=== PATIENT | male | born 1950 | race Caucasian/White ===

== ENCOUNTER 2018-05-20 14:04 | Inpatient (IN) ==
[2018-05-20] MEDS ORDERED: DUONEB (A & A) INH ONE (14:41)
[2018-05-20 14:44] LABS: ALLEN TEST NO; BE 1.2 mmoll (-3.0-3.0); BLOOD TYPE ARTERIAL; HCO3-(ACT) 25.8 mmoll (20.0-26.0); METHB 1.2 % (0.0-1.5); O2(CT) 11.4 mL/dL (15.0-23.0); O2HB 91.7 % (95.0-99.0); PCO2(98.6) 32 mmHg (35-45); PO2(98.6) 62 mmHg (60-100); SAMPLE BLOOD; THB 8.8 g/dL (11.5-17.4); pH(98.6) 7.49 (7.35-7.45)
[2018-05-20 14:46] LABS: MODALITY SIMPLE MASK
[2018-05-20 14:59] LABS: BASO# 0.03 X1000 (0.0-0.2); BASO% 0.2 % (0.0-0.8); EOS# 0.01 X1000 (0.0-0.7); EOS% 0.1 % (0.0-10.0); HEMATOCRIT 28.1 % (42.0-52.0); HEMOGLOBIN 8.9 g/dL (14.0-18.0); IMM GRAN# 0.07 X1000 (0.0-0.04); IMM GRAN% 0.5 % (0.0-0.5); LYMPH% 7.7 % (20.5-51.1); MCH 27.2 PG (27-31); MCHC 31.7 g/dL (33-37); MCV 85.9 FL (81-99); MONO# 1.08 X1000 (0.11-0.59); MONO% 7.5 % (1.7-9.3); NEUT# 12.06 X1000 (1.4-6.5); PLT 734 X1000 (130-400); RBC 3.27 XMIL (4.7-6.1); RDW 15.7 % (11.5-14.5); WBC 14.35 X1000 (4.8-10.8)
[2018-05-20 15:09] LABS: INR 1.1; PROTIME 15.1 Seconds (11.0-16.0)
[2018-05-20 15:10] LABS: PTT 35.4 Seconds (22.3-41.8)
--- NOTE | 2018-05-20 15:11 | Diag Imaging Result Doc PS360 ---
CHEST-1 VIEW - 05/20/2018 INDICATION: SOB COMPARISON: Abdomen CT from 03/15/2018 FINDINGS: There are extensive bilateral basilar infiltrates. Heart size is top normal. No pneumothorax or large pleural effusion. IMPRESSION: Extensive bilateral infiltrates. Probably represents pneumonia or pulmonary edema superimposed on pre-existing pulmonary fibrosis. Electronically signed by Lincoln Amaya 05/20/2018 3:09 PM
[2018-05-20 15:22] LABS: ALB/GLOB RATIO 0.9; ALBUMIN 3.5 g/dL (3.5-5.0); CALCIUM 9.1 mg/dL (8.8-10.2); CREATININE 1.3 mg/dL (0.7-1.2); POTASSIUM 4.7 mmol/L (3.5-5.1); TOTAL BILIRUBIN 0.42 mg/dL (0.20-1.00); TOTAL PROTEIN 7.5 g/dL (6.3-8.3)
[2018-05-20 15:32] LABS: ANISOCYTOSIS 1+; LARGE PLATELETS OCCASIONAL; LYMPHS 8 % (21-51); MONO 8 % (1-9); SEGS 83 % (42-75)
[2018-05-20 15:54] LABS: CK INDEX 1.3 (0.0-2.5); CK-MB 2.88 ng/mL (0.0-5.0)
[2018-05-20] MEDS ORDERED: ZOSYN 3.375 GM in NS 50 ML IV ONE (15:59)
[2018-05-20] MEDS ORDERED: NS 500 ML IV ONE (16:00)
--- NOTE | 2018-05-20 16:08 | PROVIDER DOCUMENTATION ---
This chart was entered by Zamzam Jeffers Scribe, acting as scribe for Josafat Langley DO. HPI-Respiratory General - General Chief Complaint: Shortness of Breath Stated Complaint: SOB Time Seen by Provider: 05/20/18 14:15 Source: patient Allergies/Adverse Reactions: Patient Allergies Allergy/AdvReac Type Severity Reaction Status Date / Time No Known Allergies Allergy Verified 05/20/18 14:39 Home Medications: Home Medication List Medication Instructions Recorded Confirmed Last Taken Type Amlodipine Besylate [Norvasc] 1 tab PO DAILY 03/12/15 05/20/18 05/20/18 History Cyclobenzaprine [Flexeril] 1 tab PO TID PRN 03/12/15 05/20/18 05/20/18 History Tiotropium Ear[place] Inhaler 1 puff INH DAILY 03/12/15 05/20/18 05/20/18 History [Spiriva] Cetirizine HCl 1 tab PO DAILY 05/20/18 05/20/18 Unknown History Hydrochlorothiazide 1 tab PO QAM 05/20/18 05/20/18 Unknown History Lisinopril 1 tab PO DAILY 05/20/18 05/20/18 Unknown History Omeprazole 1 cap PO DAILY 05/20/18 05/20/18 Unknown History RX: Escitalopram [Lexapro] 1 tab PO DAILY 05/20/18 05/20/18 Unknown History RX: Montelukast [Singulair] 1 tab PO QHS 05/20/18 05/20/18 Unknown History Simvastatin 1 tab PO QHS 05/20/18 05/20/18 Unknown History - History of Present Illness-Resp Nature of Presenting Problem: 67yom with hx COPD c/o sob for 4 days. He reports he currently quit smoking, and has not smoked for the past 10 days. Upon arrival to the ED, the patient had SAT in the low 80's. He denies pain. He denies fever, chills, nausea, vomiting, diarrhea, cp. Quality of Pain: reports: none Severity in ED: reports: moderate Onset/Duration: reports: 4 days ago Timing: reports: still present, intermittent, constant Cough Quality/Degree: reports: no cough Episode Frequency: other (hx of COPD) Current Respiratory Medication Therapy: Initiated see nurses note Modifying Factors: improves with: nothing Associated Symptoms: reports: shortness of breath. denies: chest pain/soreness , fever/chills Similar Symptoms Previously?: No Recently seen or treated by another doctor?: No Review of Systems - Adult - REVIEW OF SYSTEMS - ADULT Constitutional: denies: chills, fever Eyes: denies: discharge, dry eyes Ears, Nose, Mouth & Throat: denies: ear discharge, ear pain Cardiovascular: denies: chest pain, palpitations Respiratory: reports: shortness of breath. denies: cough Gastrointestinal: denies: abdominal pain, diarrhea, nausea, vomiting Genitourinary: denies: dysuria, hematuria Musculoskeletal: denies: back pain, muscle aches, muscle weakness Integumentary: reports: no symptoms reported Neurological: denies: dizziness/vertigo, headache/migraines Psychiatric: reports: no symptoms reported Endocrine: reports: no symptoms reported Hematologic/Lymphatic: reports: no symptoms reported Allergic/Immunologic: reports: no symptoms reported All Other Systems: Reviewed and Negative Past History - Adult - PAST MEDICAL HISTORY-ADULT Review of Records: reports: Old Records Reviewed, Nursing Assessment Review, Medications Reviewed Major Childhood Illnesses: reports: denies history Cardiovascular: reports: HTN, hyperlipidemia Respiratory: reports: COPD Gastrointestinal: reports: denies history Genitourinary: reports: denies history Musculoskeletal: reports: denies history Neurological: reports: denies history Psychiatric: reports: denies history Endocrine/Immune: reports: denies history Other Conditions: reports: denies history - PRIOR SURGERIES/PROCEDURES Surgical/Procedure History: reports: none - IMMUNIZATION STATUS Childhood Immunizations: See Nurse Assessment Flu Vaccine: See Nurse Assessment - FAMILY HISTORY Family History: reviewed, not pertinent - SOCIAL HISTORY Smoking: other (former) Substance Use: denies Living Situation: family Physical Exam-General - PHYSICAL EXAM-ADULT Exam Limited by: obesity Initial Vital Signs Reviewed: Yes - CONSTITUTIONAL General Appearance: alert, no apparent distress, obese - EYES Eyes: PERRL/EOMI, pink conjunctivae - HEAD, EARS, NOSE, MOUTH & THROAT HENMT: TMs normal, pharynx normal. negative: moist mucous membranes (dry) - NECK Neck: non-tender, supple - RESPIRATORY Respiratory: decreased breath sounds (diminshed), wheezing (expiratory), other ( tachypnea) - CARDIOVASCULAR Cardiovascular: no murmur, tachycardia - GASTROINTESTINAL (ABDOMEN) Abdominal Exam: normal bowel sounds, soft, tenderness (RLQ), other (round). negative: rigid, rebound - MUSCULOSKELETAL Extremity: non-tender, no pedal edema - SKIN Integumentary: normal color, warm/dry. negative: cyanosis - NEUROLOGIC Neurologic: grossly normal, no motor/sensory deficits - PSYCHIATRIC Psych/Mental Status: normal mood/affect, normal thought content, normal thought process, oriented x 3 Progress - PLAN OF CARE/RESULTS Progress/Plan/Lab Results: Vital Signs - 8 hr 05/20/18 14:07 05/20/18 14:25 Temperature 99.5 F Pulse Rate 120 H 120 H Respiratory Rate 28 H 24 Blood Pressure 130/61 O2 Sat by Pulse Oximetry 69 L 95 Laboratory Results - last 24 hr 05/20/18 05/20/18 05/20/18 14:21 14:21 14:21 WBC 14.35 H RBC 3.27 L Hgb 8.9 L Hct 28.1 L MCV 85.9 MCH 27.2 MCHC 31.7 L RDW Std Deviation 15.7 H Plt Count 734 H MPV 9.0 Immature Gran % (Auto) 0.5 Neut % (Auto) 84.0 H Lymph % (Auto) 7.7 L [place] % (Auto) 7.5 Eos % (Auto) 0.1 Baso % (Auto) 0.2 Immature Gran # (Auto) 0.07 H Neut # (Auto) 12.06 H Lymph # (Auto) 1.10 L [place] # (Auto) 1.08 H Eos # (Auto) 0.01 Baso # (Auto) 0.03 Segmented Neutrophils 83 H Lymphocytes 8 L Monocytes 8 Myelocytes 1.0 Large Platelets OCCASIONAL Anisocytosis 1+ PT 15.1 INR 1.10 PTT (Actin FS) 35.4 Specimen Type Sample Site pH pCO2 pO2 HCO3 Base Excess Oxyhemoglobin ABG O2 Sat (Calculated) ABG O2 Saturation ABG Carboxyhemoglobin ABG Methemoglobin Ron Test A-a O2 Difference Total Hemoglobin Lactate Liter Flow Blood Gas Modality FiO2 % Sodium 134 L Potassium 4.7 Chloride 93 L Carbon Dioxide 22 L Anion Gap 19 BUN 27 H Creatinine 1.3 H Estimated GFR/1.73 m2 55 BUN/Creatinine Ratio 21 Glucose 177 H Calculated Osmolality 278 Calcium 9.1 Total Bilirubin 0.42 AST 34 ALT 13 Alkaline Phosphatase 112 Creatine Kinase 219 H Creatine Kinase Index 1.3 CK-MB (CK-2) 2.88 Troponin T Total Protein 7.5 Albumin 3.5 Globulin 4.0 Albumin/Globulin Ratio 0.9 Plasma Lactate 05/20/18 05/20/18 05/20/18 14:21 14:25 14:41 WBC RBC Hgb Hct MCV MCH MCHC RDW Std Deviation Plt Count MPV Immature Gran % (Auto) Neut % (Auto) Lymph % (Auto) [place] % (Auto) Eos % (Auto) Baso % (Auto) Immature Gran # (Auto) Neut # (Auto) Lymph # (Auto) [place] # (Auto) Eos # (Auto) Baso # (Auto) Segmented Neutrophils Lymphocytes Monocytes Myelocytes Large Platelets Anisocytosis PT INR PTT (Actin FS) Specimen Type ARTERIAL Sample Site R BRACHIAL pH 7.49 H pCO2 32 L pO2 62 HCO3 25.8 Base Excess 1.2 Oxyhemoglobin 91.7 L ABG O2 Sat (Calculated) 11.4 L ABG O2 Saturation 95.0 ABG Carboxyhemoglobin 2.30 ABG Methemoglobin 1.2 Ron Test NO A-a O2 Difference 219.0 Total Hemoglobin 8.8 L Lactate 1.60 Liter Flow 7.0 Blood Gas Modality SIMPLE MASK FiO2 % 45.0 Sodium Potassium Chloride Carbon Dioxide Anion Gap BUN Creatinine Estimated GFR/1.73 m2 BUN/Creatinine Ratio Glucose Calculated Osmolality Calcium Total Bilirubin AST ALT Alkaline Phosphatase Creatine Kinase Creatine Kinase Index CK-MB (CK-2) Troponin T < 0.010 Total Protein Albumin Globulin Albumin/Globulin Ratio Plasma Lactate 2.9 H Orders Category Date Time Status Cardiac Monitoring DIRECTED Care 05/20/18 14:33 Active IV Insertion ORDERED Care 05/20/18 14:33 Active Notify MD of + Sepsis Screen NOW Care 05/20/18 14:33 Active Notify Physician As Ordered Care 05/20/18 14:33 Active CHEST-1 VIEW [RAD] Stat Exams 05/20/18 14:33 Completed ABG [RESP] Routine Lab 05/20/18 14:41 Completed BLOOD CULTURE [BLDCUL] Stat Lab 05/20/18 14:21 Results CBC WITH DIFF [HEME] Stat Lab 05/20/18 14:21 Completed CK PROFILE [SP CHEM] Stat Lab 05/20/18 14:21 Completed COMPREHENSIVE METABOLIC PANEL [CHEM] Stat Lab 05/20/18 14:21 Completed LACTATE, PLASMA [CHEM] Lab 05/20/18 14:25 Completed LACTATE, PLASMA [CHEM] Lab 05/20/18 17:45 Uncollected LACTATE, PLASMA [CHEM] Lab 05/20/18 20:45 Uncollected PROTIME WITH INR [COAG] Stat Lab 05/20/18 14:21 Completed PTT [COAG] Stat Lab 05/20/18 14:21 Completed TROPONIN T Stat Lab 05/20/18 14:21 Completed URINALYSIS W/POSS RFLX CULT [URINALYSIS] Stat Lab 05/20/18 14:33 Uncollected 0.9% Sodium Chloride Inj [Ns] 500 ml Med 05/20/18 16:00 Active IV 100 mls/hr Albuterol 2.5MG/Ipratrop 0.5MG [Duoneb (A & A)] Med 05/20/18 14:41 Discontinued 3 ml INH NOW ONE Piperacillin/Tazobactam [Zosyn] 3.375 gm Med 05/20/18 15:59 Active 0.9% Sodium Chloride Inj [Ns] 50 ml IV NOW Aerosol Treatments Routine Oth 05/20/18 14:41 Completed Aerosol Treatments Stat Oth 05/20/18 14:41 Completed Oxygen Device Stat Oth 05/20/18 14:33 Completed Result Diagrams: 05/20/18 14:21 05/20/18 14:21 - EKG 1 Time of EKG reading by physician:: 14:15 EKG Read and Signed by:: Josafat Langley EKG Interpretation (*Must complete 3 of following elements*): Abnormal Rate: 118 Rhythm: Sinus tachycardia [place]: normal QRS: normal Comments: possible infarct - XRAY 1 XRAY Study: Chest Impression: Abnormal (FINDINGS: There are extensive bilateral basilar infiltrates. Heart size is top normal. No pneumothorax or large pleural effusion. IMPRESSION: Extensive bilateral infiltrates. Probably represents pneumonia or pulmonary edema superimposed on pre-existing pulmonary fibrosis.) - CONSULTS/PCP/HOSPITALIST Notification #1 *Consult/PCP/Hospitalist*: Dalton Escobedo Time Discussed: 16:01 Consult Disposition: Admit Departure - Departure Date of Disposition Decision: 05/20/18 Time of Disposition Decision: 16:07 DIAGNOSIS: Pneumonia, COPD (chronic obstructive pulmonary disease) Disposition: ADMITTED INPATIENT 09 Certified Medical Emergency: Emergent Condition: Stable Additional Freetext Instructions: ED Follow Up Instructions: You have been treated by a care provider in the Emergency Department. These instructions are being provided to you so you can have an understanding of how to care for yourself upon discharge. Upon discharge from the Emergency Department, you are responsible for making arrangements for follow-up care by a physician of your choice. Take all prescribed medications as directed. Return to the Emergency Department immediately for any new or worsening symptoms. You may call the Physician Referral phone number at [phone] to obtain a list of Physicians who are taking new patients. Referrals and Follow-Ups: María Connors CRNP [Primary Care Provider] - - Critical Care Note This patient required my direct & personal management of CC.: No Attestation - Physician/ RUBINA Attestation Patient care was provided by Advanced Practice Provider:: No The physician spent face to face time with patient:: Yes Advanced Practice Provider documentation review:: Supervising physician onsite and consulted in the evaluation and care of this patient. The physician did have a face to face encounter with the patient. This chart was documented by the indicated scribe, (Zamzam Jeffers Scribe) and accurately reflects the services I performed and decisions made by , Josafat Langley DO, as attested by the provider's signature.
[2018-05-20] MEDS ORDERED: XOPENEX NEB INH PRN (16:37)
[2018-05-20 16:41] LABS: URINE SOURCE CATH
[2018-05-20] MEDS ORDERED: LEVAQUIN 750 MG/D5W 750 MG/150 ML IVPB IV SCH (16:45)
[2018-05-20 16:46] LABS: BILIRUBIN URINE NEGATIVE (NEGATIVE); BLOOD URINE NEGATIVE (NEGATIVE); COLOR YELLOW; GLUCOSE URINE NEGATIVE (NEGATIVE); KETONE URINE NEGATIVE (NEGATIVE); LEUKOCYTES URINE NEGATIVE (NEGATIVE); NITRITE URINE NEGATIVE (NEGATIVE); PH URINE 6.5; PROTEIN URINE 30 mg/dL (NEGATIVE); SP GRAVITY URINE 1.023; TURBIDITY URINE CLEAR (CLEAR); UROBILINOGEN URINE 2 mg/dL (NORMAL)
[2018-05-20 16:48] LABS: UR EPITHELIAL CELLS <10 /HPF (<10); URINE BACTERIA NEGATIVE /HPF; URINE RBC <10 /HPF (<10); URINE WBC <10 /HPF (<10)
[2018-05-20] MEDS ORDERED: SODIUM CHLORIDE 0.9% INJ SCH (17:00)
[2018-05-20 17:07] LABS: IRON SATURATION 7 %; TIBC 263 ug/dL; TOTAL IRON 18 ug/dL (53-167); UNBOUND IRON 245 ug/dL (112-346)
[2018-05-20 17:16] LABS: FREE T4 1.81 ng/dL (0.93-1.70); TSH 0.42 uIUmL (0.27-4.20)
--- NOTE | 2018-05-20 17:30 | HISTORY AND PHYSICAL ---
DATE OF ADMISSION: 05/20/2018. PRIMARY CARE PHYSICIAN: JULISSA Tapia. CHIEF COMPLAINT: Dyspnea. HISTORY OF PRESENT ILLNESS: Mr. Gar is a [id number]- male with a history of COPD, what appears to be pulmonary fibrosis, hypertension, hyperlipidemia, and depression who presents with four days of increasing dyspnea and right lower quadrant pain. He started having shortness of breath around four days ago. This has been progressively worse associated with a dry cough and no fever. He denies any chest pain. No lower extremity edema. He does endorse a focal right lower quadrant tenderness mostly when he coughs. He has been followed by his PCP for anemia. He had an abdomen CT done in March which showed pulmonary fibrosis with honeycombing at the lung bases but otherwise nothing acute. He remains anemic today but has a white count with a left shift. He is also hypoxic with mild renal insufficiency. He has a mild elevation in his lactic acid. He is breathing around 30-35 times a minute. We are going to place him on BiPAP and put him in the ICU. PAST MEDICAL HISTORY: 1. COPD. 2. Hypertension. 3. Hyperlipidemia. 4. Obesity. 5. Anemia. 6. Chronic pain. 7. [id number] history, quit smoking 10 days ago per his report. SURGICAL HISTORY: None. SOCIAL HISTORY: He was smoking upwards of three packs a day for 40 years per his report. He quit 10 days ago. Denies alcohol or drug use. He lives with his sister whom he takes care of, but he is not . He is on disability. FAMILY HISTORY: Noncontributory. REVIEW OF SYSTEMS: A 14-point review of systems was obtained and found to be negative with the exception of the HPI. PHYSICAL EXAM: VITAL SIGNS: Blood pressure is 130/74, heart rate 117, respiratory rate 30 and O2 saturation is 93% on 7 L simple face mask. Temperature is 99.5. GENERAL: This is an obese- male lying in a hospital bed in moderate to severe respiratory distress. NEUROLOGICAL: He is awake and oriented. He follows commands without focal deficits. HEENT: Normocephalic, atraumatic. Pupils are equal, round and reactive to light. His oral mucosa is dry. Trachea is midline. There is no JVD. CHEST: Increased work of breathing noted. No overt wheezes. Faint crackles noted throughout. CV: Tachy but regular. S1, S2 noted. No murmurs. GI: Focal right lower quadrant tenderness to palpation. Otherwise, abdomen is soft and nondistended. Bowel sounds are hypoactive. EXTREMITIES: Diminished pulses at 1+ bilaterally. There is no edema. DIAGNOSTIC DATA: Chest x-ray shows extensive bilateral infiltrates presumably representing pneumonia or pulmonary edema superimposed on preexisting pulmonary fibrosis. WBC 14.35, hemoglobin 8.9, hematocrit 28.1 and platelet count 734. INR 1.1. ABG on 7 L simple face mask: pH 7.49, pCO2 32, and pO2 62 with a bicarbonate of 25.8. Sodium 134, CO2 22, anion gap 19, BUN 27, creatinine 1.3, glucose 177, calcium 9.1, AST 34, ALT 13 , alk phos 112, CK 219, troponin negative, albumin 3.5, and lactic acid 2.9. UA is negative. ASSESSMENT AND PLAN: 1. Acute hypoxemic respiratory failure. Likely COPD/pulmonary fibrosis with superimposed pneumonia and/or possibly congestive heart failure. We will continue antibiotics, and we will add Levaquin to double cover for pseudomonas given his structural lung disease. Continue breathing treatments and add BiPAP. We will trend his cardiac enzymes and check an echocardiogram once he is more stable. 2. Community acquired pneumonia. Continue antibiotics as described as well as oxygen with BiPAP, breathing treatments, and aggressive pulmonary toilet. 3. Pulmonary fibrosis. The patient will need a pulmonary consult which we have placed with Dr. Prather. We will continue treatment as noted above. 4. Chronic anemia. Will check iron studies and fecal occult blood. Given his right lower quadrant tenderness, we will also check an abdomen and pelvis CT. 5. Acute kidney injury. Likely prerenal, but it does appear that he has a history of elevated creatinine. Last year, it was 1.7. We will check urine studies. Check a CT of the abdomen and pelvis to evaluate for any obstruction although unlikely. 6. Hyperglycemia. We will check a hemoglobin A1C and treat accordingly. 7. Hypertension and hyperlipidemia. Will continue medications as appropriate. 8. Deep vein thrombosis prophylaxis with SCD TEDs given his anemia. CRITICAL CARE TIME: 1 hour. Dictated by JULISSA Rodriguez for Sandra Carlton MD cc: JULISSA Rodriguez MD [facility]
[2018-05-20 17:37] LABS: UR CREAT RANDOM 171.8 mg/dL (14-26); UR PROT RANDOM 48.4 mg/dL
[2018-05-20 18:04] LABS: CK INDEX 1.4 (0.0-2.5); CK-MB 3.04 ng/mL (0.0-5.0)
[2018-05-20] MEDS: PROTONIX IV SCH (18:20)
[2018-05-20] MEDS: MAXIPIME 1 GM in NS 50 ML IV SCH (18:42)
[2018-05-20] MEDS: ZITHROMAX 500 MG/NS 500 MG/250 ML IVPB IV SCH (18:43)
[2018-05-20] MEDS: ZYVOX 600 MG/D5W 600 MG/300 ML IVPB IV SCH (18:44)
[2018-05-20] MEDS: XOPENEX NEB INH SCH ×2 (19:30→23:30)
--- NOTE | 2018-05-20 19:30 | Diag Imaging Result Doc PS360 ---
CT THORAX/ABD/PELVIS W/CON - 05/20/2018 INDICATION: fibrosis, respiratory failure,anemia, abd pain COMPARISON: 02/12/2018 FINDINGS: CHEST: There is no adenopathy. Heart size is normal. There is worsening in the coarse pulmonary fibrosis. There is extensive round glass interstitial infiltrate diffusely and bilaterally. This is mainly peripheral. There are moderate degenerative changes of the spine. No acute or suspicious bony lesion. Abdomen pelvis: The liver, gallbladder, spleen, pancreas, adrenals, and kidneys are normal. No bowel obstruction or inflammation. Urinary bladder, prostate, and rectum are normal. Bones are intact. IMPRESSION: Worsening pulmonary fibrosis. New severe atypical interstitial pulmonary infiltrates. Mostly represents usual interstitial pneumonitis. Pulmonary consultation recommended. This exam was performed using automated exposure control, adjustment of mA or kV according to patient size, and/or use of iterative reconstruction technique Electronically signed by Lincoln Amaya 05/20/2018 7:28 PM
[2018-05-20] MEDS ORDERED: ZOSYN 3.375 GM in NS 50 ML IV SCH (22:00)
[2018-05-21] MEDS ORDERED: LASIX IV ONE (00:51)
[2018-05-21 01:03] LABS: ALLEN TEST YES; BE -1.7 mmoll (-3.0-3.0); BLOOD TYPE ARTERIAL; HCO3-(ACT) 23.5 mmoll (20.0-26.0); METHB 1.2 % (0.0-1.5); O2HB 91.3 % (95.0-99.0); PCO2(98.6) 46 mmHg (35-45); PO2(98.6) 69 mmHg (60-100); SAMPLE BLOOD; SAO2 93.7 % (95.0-100.0); THB 8.5 g/dL (11.5-17.4); pH(98.6) 7.33 (7.35-7.45)
[2018-05-21 01:04] LABS: MODALITY BI PAP
[2018-05-21 04:03] LABS: ALLEN TEST YES; BE 3.2 mmoll (-3.0-3.0); BLOOD TYPE ARTERIAL; HCO3-(ACT) 27.4 mmoll (20.0-26.0); METHB 1.1 % (0.0-1.5); O2(CT) 10.9 mL/dL (15.0-23.0); O2HB 93.9 % (95.0-99.0); PCO2(98.6) 35 mmHg (35-45); PO2(98.6) 68 mmHg (60-100); SAMPLE BLOOD; SAO2 96.4 % (95.0-100.0); THB 8.2 g/dL (11.5-17.4); pH(98.6) 7.49 (7.35-7.45)
[2018-05-21 04:04] LABS: MODALITY NRB
[2018-05-21 04:58] LABS: BASO# 0.03 X1000 (0.0-0.2); BASO% 0.2 % (0.0-0.8); EOS# 0.05 X1000 (0.0-0.7); EOS% 0.4 % (0.0-10.0); HEMATOCRIT 25.3 % (42.0-52.0); HEMOGLOBIN 8.1 g/dL (14.0-18.0); IMM GRAN# 0.02 X1000 (0.0-0.04); IMM GRAN% 0.1 % (0.0-0.5); LYMPH% 4.9 % (20.5-51.1); MCH 27.6 PG (27-31); MCV 86.3 FL (81-99); MONO# 0.97 X1000 (0.11-0.59); MONO% 6.8 % (1.7-9.3); MPV 8.5 FL (7.4-10.4); NEUT# 12.47 X1000 (1.4-6.5); NEUT% 87.6 % (42.2-75.2); PLT 629 X1000 (130-400); RBC 2.93 XMIL (4.7-6.1); WBC 14.24 X1000 (4.8-10.8)
[2018-05-21 05:24] LABS: ALB/GLOB RATIO 0.9; ALBUMIN 3.1 g/dL (3.5-5.0); CALCIUM 8.5 mg/dL (8.8-10.2); CREATININE 1.4 mg/dL (0.7-1.2); MAGNESIUM 2.1 mg/dL (1.5-2.7); POTASSIUM 4.4 mmol/L (3.5-5.1); TOTAL BILIRUBIN 0.43 mg/dL (0.20-1.00); TOTAL PROTEIN 6.7 g/dL (6.3-8.3)
[2018-05-21] MEDS: MAXIPIME 1 GM in NS 50 ML IV SCH ×2 (06:30→18:24)
--- NOTE | 2018-05-21 07:03 | Diag Imaging Result Doc PS360 ---
EXAM: CHEST-PORTABLE HISTORY: pneumonia TECHNIQUE: Portable chest single view COMPARISON: 05/20/2018 FINDINGS: Poor inspiratory effort. There are bilateral infiltrates in the mid lower lungs. There are likely small pleural effusions. The overall appearance is similar to the prior exam. IMPRESSION: Stable chest. Electronically signed by Juno Dolan 05/21/2018 7:01 AM
[2018-05-21] MEDS: ZYVOX 600 MG/D5W 600 MG/300 ML IVPB IV SCH (07:25)
[2018-05-21] MEDS: XOPENEX NEB INH SCH ×6 (07:28→23:55)
[2018-05-21] MEDS: LOVENOX SUBQ SCH (10:31)
--- NOTE | 2018-05-21 10:52 | EKG Report ---
Test Performed on : 05/20/2018 2:13:30 PM Test Reason : ED. NO EKG ORDER FOR MUSE Blood Pressure : / mmHG Vent. Rate : 118 BPM Atrial Rate : 118 BPM P-R Int : 136 ms QRS Dur : 084 ms QT Int : 304 ms P-R-T Axes : 030 005 032 degrees QTc Int : 426 ms Sinus tachycardia. Posterior infarct , age undetermined Abnormal ECG When compared with ECG of 12-MAR-2015 17:59, premature ventricular complexes. are no longer present ST more depressed in Anterior leads Unconfirmed Result
[2018-05-21] MEDS: LASIX IV SCH (15:19)
[2018-05-21] MEDS: SOLU-MEDROL IV SCH ×2 (15:19→20:42)
[2018-05-21] MEDS: CLINIMIX E 4.25%-5% SOLUTION 1,000 ML IV SCH (15:19)
[2018-05-21] MEDS: LEVAQUIN 500 MG/D5W 500 MG/100 ML IVPB IV SCH (15:19)
--- NOTE | 2018-05-21 18:02 | ECHO REPORT ---
ORDER DATE: 05/21/2018 INTERPRETING PHYSICIAN: Dr. Melgoza REQUESTING PHYSICIAN: CLINICAL INDICATIONS: This is a 67-year-old male smoker with COPD, hypertension. M-MODE MEASUREMENTS: Right ventricle: cm. Left ventricle end diastole: 5.2 cm. Left ventricle end systole: 3.2 cm. Posterior wall: 1.1 cm. Interventricular septum: 1.1 cm. Left atrium: 3.7 cm. Aortic root: 3.0 cm. SUMMARY OF 2-DIMENSIONAL IMAGIN. The left ventricular function is normal. Ejection fraction is estimated at 60% to 65%. No wall motion abnormality noted. The patient appears to be in atrial fibrillation. 2. Pulse wave Doppler of mitral inflow shows single filling wave. 3. The tissue Doppler of sepal and lateral mitral annulus averages in some of atrial arrhythmia. 4. The pulse wave Doppler of mitral inflow shows variable E/A ratio. 5. Tissue Doppler of septal and lateral mitral annulus averages 10 cm. 6. The diastolic function is probably normal. 7. There is mild degree of mitral regurgitation. 8. Tricuspid valve shows mild to moderate degree of regurgitation. 9. Inferior vena cava is not dilated. 10.Pulmonary pressure is 53 mmHg. 11.Pulmonic valve looks normal. Color flow mapping is unremarkable. 12.Aortic valve shows calcification of the cusps with some restricted opening. 13.Maximum gradient across the outflow tract of the left ventricle shows a value of 42 mmHg. Mean gradient is 23 mmHg. That suggests mild to moderate degree of aortic stenosis. Color flow mapping shows mild degree of regurgitation. 14.There is no pericardial effusion, mass, or thrombus. CONCLUSIONS: In summary, this study shows: 1. Technically difficult study. 2. Moderate aortic stenosis. Mean gradient 23 mmHg. 3. No diastolic dysfunction. 4. Moderate pulmonary hypertension estimated at 53 mmHg. There is mild to moderate degree of tricuspid regurgitation. 5. There is no pericardial effusion. Clinical correlation is recommended. cc: MD Shankar Sheth CRNP
[2018-05-21] MEDS: PROTONIX IV SCH (18:23)
--- NOTE | 2018-05-21 19:01 | PROGRESS NOTE ---
DATE: 05/21/2018 SUBJECTIVE: The patient complains of shortness of breath. No acute events noted overnight. OBJECTIVE: Vital Signs: Temperature 98.6, blood pressure 131/70, heart rate 103, respirations 17, O2 sats 99% on a non-rebreather mask. Urine output 1.9 L. General: This is a chronically ill-appearing elderly male lying in bed in no acute distress. Skin: No rashes, no lesions. Heart: S1, S2 normal. Tachycardic. Lungs: Coarse breath sounds with rhonchi bilaterally. Abdomen: Positive bowel sounds. Soft, nontender, nondistended. Extremities: 1+ edema bilaterally. No cyanosis. No calf tenderness. Neurologic: The patient is alert and oriented. LABS: White blood cell count 14, hemoglobin 8.1, hematocrit 25, platelets 629,000. Sodium 133, potassium 4.4, chloride 93, CO2 25, BUN 26, creatinine 1.4, glucose 125, calcium 8.5, magnesium 2.1, albumin 3.1. Chest x-ray shows bilateral infiltrates in the mid lower lungs. ASSESSMENT AND PLAN: 1. Acute hypoxemic respiratory failure. Multifactorial. The patient has pneumonia as well as pulmonary edema and COPD. 2. Pneumonia. Continue with antibiotic therapy. Will follow up on the culture results. The patient is also on bronchodilator therapy. 3. Pulmonary fibrosis. Aware. 4. Pulmonary edema. The patient is on diuretic therapy. 5. COPD exacerbation. The patient has been started on steroids plus bronchodilator therapy. 6. Morbid obesity. Aware. 7. Leukocytosis. Continue with antibiotic therapy. We will monitor for improvement. 8. Anemia. Will monitor the hemoglobin and hematocrit closely and transfuse p.r.n. 9. Acute kidney injury on chronic kidney disease. We will monitor the patient's renal function closely and avoid nephrotoxic agents. 10. GI prophylaxis. Continue on IV Protonix. 11. DVT prophylaxis. Continue on Lovenox. cc: Sandra Carlton MD
[2018-05-21] MEDS: ZITHROMAX 500 MG/NS 500 MG/250 ML IVPB IV SCH (20:41)
--- NOTE | 2018-05-22 01:06 | PULMONOLOGY CONSULTATION ---
DATE: 05/21/2018 REQUESTING PHYSICIAN: Dr. Carlton. REASON FOR CONSULTATION: Respiratory failure. HISTORY OF PRESENT ILLNESS: Mr. Gar is a 67-year-old white male with a greater than 100 pack year history for tobacco who stopped smoking approximately 10 days ago due to increasing shortness of breath. The patient's shortness of breath continued to progress and markedly increased over the last 4 days. Patient presented emergency room and his oxygen saturation was in the low 80s. He does have a dry cough. He has some reflux but denies reflux with aspiration. He denies fevers or chills. He did have a family member with an upper respiratory infection but he never had any symptoms. He has had no recent change in his medications. He denies recent travel. He denies water leak or water damage at his house. He has not had a recent pulmonary evaluation. PAST MEDICAL HISTORY: 1. Psoriasis. 2. Hypertension. 3. Dyslipidemia. 4. Chronic back pain. SOCIAL HISTORY: Extensive tobacco history with recent discontinuation as per above. No alcohol or drug use. FAMILY HISTORY: Mother from old age in her 80s. Father with lung disease. REVIEW OF SYSTEMS: As noted in the HPI. PHYSICAL EXAMINATION: General: Reveals a well-developed, well-nourished male who developed shortness of breath with oxygen desaturation with any movement. Blood pressure 125/77, heart rate 101, respiratory rate 26, oxygen saturation 95%. HEENT: Pupils are equal and reactive. Oropharynx is clear. Neck: Supple. Chest: Reveals diffuse crackles predominantly in the lung bases with shallow breath sounds bilaterally. Cardiac: S1-S2. Abdomen: Obese and soft. Extremities: Without edema. LABORATORIES: Arterial blood gas in the emergency room on presentation on 45% pH 7.49, pCO2 32, PO2 of 62. Arterial blood gas this morning on nonrebreather pH 7.49 pCO2 of 35, PO2 of 68. White blood count 14.24, hemoglobin 8.1, platelet count 629,000. Sodium 133, potassium 4.4, chloride 93, bicarbonate 25, BUN 24, creatinine 1.4. Influenza screen is negative. Blood cultures are negative to date. CT scan of the thorax is reviewed. The patient has evidence of diffuse pneumonitis which was not present on CT scan of the abdomen in March of this year. He does have some background fibrosis. IMPRESSION: The patient is a 67-year-old with acute hypoxemic respiratory failure, pulmonary fibrosis, extensive tobacco history. Patient's CT scan in March revealed some mild fibrotic changes in the lung bases and may represent early idiopathic pulmonary fibrosis. His CT scan now reveals diffuse bilateral ground-glass changes. This may be an acute exacerbation of his idiopathic pulmonary fibrosis or may be related to a smoking-related illness such as desquamative interstitial pneumonitis. The patient does not give significant infectious symptoms and I think an atypical pneumonia or a Legionella pneumonia would be significantly less likely but should be treated. The patient does have psoriasis and may be at risk for connective tissue diseases such as lupus. He describes no exposures which would suggest hypersensitivity pneumonitis. I reviewed all of his medications with his pharmacist at [facility] and no offending medication was identified. RECOMMENDATIONS: 1. Continue high-flow O2 for acute hypoxemic respiratory failure. 2. Initiate high-dose steroids for acute pneumonitis. 3. Continue treatment for atypical pneumonia and Legionella although these seem less likely. 4. Encourage continued smoking cessation. 5. Prognosis is guarded. cc: Jesus Prather MD
[2018-05-22] MEDS: LASIX IV SCH ×2 (01:53→12:00)
[2018-05-22] MEDS: SOLU-MEDROL IV SCH ×4 (01:53→20:52)
[2018-05-22] MEDS: XOPENEX NEB INH SCH ×6 (03:47→23:10)
[2018-05-22 04:55] LABS: ALLEN TEST YES; BLOOD TYPE ARTERIAL; METHB 1.3 % (0.0-1.5); O2(CT) 11.1 mL/dL (15.0-23.0); O2HB 93.4 % (95.0-99.0); PCO2(98.6) 42 mmHg (35-45); PO2(98.6) 72 mmHg (60-100); SAMPLE BLOOD; SAO2 96.1 % (95.0-100.0); THB 8.4 g/dL (11.5-17.4); pH(98.6) 7.44 (7.35-7.45)
[2018-05-22 04:56] LABS: MODALITY NRB
[2018-05-22] MEDS: MAXIPIME 1 GM in NS 50 ML IV SCH ×2 (05:30→16:48)
[2018-05-22] MEDS: CLINIMIX E 4.25%-5% SOLUTION 1,000 ML IV SCH (05:30)
[2018-05-22 05:50] LABS: HEMOGLOBIN 7.8 g/dL (14.0-18.0); IMM GRAN# 0.04 X1000 (0.0-0.04); IMM GRAN% 0.3 % (0.0-0.5); LYMPH% 4.3 % (20.5-51.1); MCHC 31.2 g/dL (33-37); MCV 86.5 FL (81-99); MONO# 0.24 X1000 (0.11-0.59); MONO% 1.7 % (1.7-9.3); MPV 9.1 FL (7.4-10.4); NEUT# 13.09 X1000 (1.4-6.5); NEUT% 93.7 % (42.2-75.2); PLT 671 X1000 (130-400); RBC 2.89 XMIL (4.7-6.1); RDW 15.9 % (11.5-14.5); WBC 13.97 X1000 (4.8-10.8)
[2018-05-22 05:59] LABS: ALB/GLOB RATIO 0.6; ALBUMIN 2.9 g/dL (3.5-5.0); CALCIUM 8.2 mg/dL (8.8-10.2); CREATININE 1.4 mg/dL (0.7-1.2); MAGNESIUM 2.4 mg/dL (1.5-2.7); POTASSIUM 3.6 mmol/L (3.5-5.1); TOTAL BILIRUBIN 0.35 mg/dL (0.20-1.00); TOTAL PROTEIN 7.6 g/dL (6.3-8.3)
--- NOTE | 2018-05-22 07:16 | Diag Imaging Result Doc PS360 ---
EXAM: CHEST-PORTABLE 05/22/2018 HISTORY: pneumonia TECHNIQUE: AP portable at 0550 COMMENT: There is interstitial and alveolar opacity throughout most of both lungs as there was on 05/21/2018. There may be minimal improvement. IMPRESSION: Slightly improved pulmonary edema and/or pneumonia. Electronically signed by Georges Huggins 05/22/2018 7:14 AM
[2018-05-22 07:20] LABS: LYMPHS 5 % (21-51); MONO 1 % (1-9); SEGS 94 % (42-75)
[2018-05-22] MEDS: LOVENOX SUBQ SCH (08:44)
--- NOTE | 2018-05-22 09:07 | PULMONOLOGY PROGRESS NOTE ---
DATE: 05/22/2018 SUBJECTIVE: The patient is awake and alert. He reports he feels better and wants to go home. He remains on a non-rebreather. OBJECTIVE: Vital Signs: Maximum temperature in the last 24 hours 100.0 degrees. Current temperature 97.6 degrees. Blood pressure 123/64, heart rate 103, respiratory rate 27, oxygen saturation 95%. HEENT: Pupils are equal and reactive. Oropharynx is clear. Neck: Supple. Chest: Reveals scattered crackles bilaterally. Cardiac exam: S1, S2. Abdomen: Obese and soft. Extremities: Trace edema. DIAGNOSTIC STUDIES: Chest x-ray reveals bilateral infiltrates with probable marginal improvement over the last 24 hours. IMPRESSION: The patient is a 67-year-old with acute hypoxemic respiratory failure, component of pulmonary fibrosis, with diffuse bilateral infiltrates. Etiology for the infiltrates is not clear and could represent an acute infectious process, although he does not provide significant symptoms to suggest infection. Inflammatory causes such as connective tissue-related diseases or smoking- related disease such as desquamative interstitial pneumonitis is in the differential. RECOMMENDATIONS: 1. Continue current antibiotic regimen. 2. Continue high-dose steroids. 3. Await laboratory studies. 4. Encouraged patient to stop smoking. cc: Jesus Prather MD
--- NOTE | 2018-05-22 09:46 | PROGRESS NOTE ---
DATE: 05/22/2018 PRIMARY CARE PHYSICIAN: JULISSA Tapia SUBJECTIVE: This is a 67-year-old who came in with dyspnea, history of COPD, appears to have pulmonary fibrosis, hypertension, hyperlipidemia, depression, presented with 4 days of increasing dyspnea, right lower quadrant pain, started having shortness of breath around 4 days before admission. Progressively got worse with dry cough, but no fever. Denies any chest pain, had lower extremity edema. Right lower quadrant tenderness mostly when he coughs. Followed by his primary care, JULISSA Tapia. He had an abdominal CT done in March that showed pulmonary fibrosis and honeycombing of the lung bases, but otherwise nothing acute. He did have an anemia they were following, but presented hypoxic with mild renal insufficiency. Once again reviewed past medical history, as follows: PAST MEDICAL HISTORY: 1. COPD. 2. Hypertension. 3. Hyperlipidemia. 4. Obesity. 5. Anemia. 6. Chronic pain. 7. [id number] history of smoking. Quit smoking 10 days before admission. So, admitted with acute hypoxemic respiratory failure, likely COPD exacerbation, pulmonary fibrosis, and superimposed pneumonia, and possibly some systolic congestive heart failure, or diastolic. Put on Levaquin and bronchodilators, and was using BiPAP. [place] he had a community- acquired pneumonia, underlying pulmonary fibrosis. OBJECTIVE: General: On exam today, he states he feels better, remains afebrile. Vital Signs: Temperature 97.6 degrees, pulse 101, respirations 30, blood pressure 132/77. Urine output is 3700 mL. HEENT: Pupils are equal and round. Lungs: Clear in all lung person. Cardiovascular: Regular rhythm and rate without murmur or S3. Abdomen: Soft. Skin: Warm and dry. ASSESSMENT AND PLAN: 1. Acute hypoxemic respiratory failure, likely chronic obstructive pulmonary disease, pulmonary fibrosis with superimposed pneumonia, possible congestive heart failure. Echocardiogram was technically difficult study. Moderate aortic stenosis with mean gradient of 23 mmHg. No diastolic dysfunction. Moderate pulmonary hypertension estimated at 50s. Pulmonary arterial pressure estimated at 53 mmHg. Mild degree of tricuspid regurgitation. No pericardial effusion. 2. Chronic anemia. Continue to check fecal occult blood. 3. Acute kidney injury and likely suspect it was prerenal. Creatinine is 1.4 on presentation. So, his renal function stayed creatinine 1.3 to 1.4. REVIEW OF ORDERS: Patient on Tylenol q.6 hours p.r.n., getting Lovenox 40 mg subcutaneously q.24 hours, Lasix 20 mg IV q.24 hours, Xopenex 0.63 mg IV q.4 hours, Levaquin 500 mg q.24 hours, Maxipime 1 g q.12, methylprednisone 125 mg IV q.6, Protonix 40 mg q.24 hours, azithromycin 500 mg daily. I will let Dr. Prather taper prednisone at his discretion. cc: Ron Brown MD
[2018-05-22] MEDS: TYLENOL PO PRN ×2 (12:00→22:57)
[2018-05-22] MEDS: HUMALOG SUBQ SCH ×4 (12:00→20:52)
[2018-05-22] MEDS: LEVAQUIN 500 MG/D5W 500 MG/100 ML IVPB IV SCH (14:23)
[2018-05-22] MEDS: PROTONIX IV SCH (16:48)
[2018-05-22] MEDS: ZITHROMAX 500 MG/NS 500 MG/250 ML IVPB IV SCH (20:52)
[2018-05-23] MEDS: SOLU-MEDROL IV SCH ×4 (02:18→19:59)
[2018-05-23] MEDS: HUMALOG SUBQ SCH ×7 (02:19→19:59)
[2018-05-23] MEDS ORDERED: ATIVAN IV ONE (02:29)
[2018-05-23] MEDS: XOPENEX NEB INH SCH ×6 (03:34→23:00)
[2018-05-23] MEDS: MAXIPIME 1 GM in NS 50 ML IV SCH ×2 (04:24→16:06)
[2018-05-23 05:02] LABS: ALLEN TEST YES; BE 4.5 mmoll (-3.0-3.0); BLOOD TYPE ARTERIAL; HCO3-(ACT) 28.4 mmoll (20.0-26.0); METHB 0.3 % (0.0-1.5); O2(CT) 10.4 mL/dL (15.0-23.0); O2HB 91.8 % (95.0-99.0); PCO2(98.6) 38 mmHg (35-45); PO2(98.6) 58 mmHg (60-100); SAMPLE BLOOD; SAO2 93.9 % (95.0-100.0); pH(98.6) 7.48 (7.35-7.45)
[2018-05-23 05:06] LABS: MODALITY NRB
[2018-05-23 05:46] LABS: ALB/GLOB RATIO 0.6; ALBUMIN 2.8 g/dL (3.5-5.0); CALCIUM 8.3 mg/dL (8.8-10.2); CREATININE 1.3 mg/dL (0.7-1.2); MAGNESIUM 2.5 mg/dL (1.5-2.7); POTASSIUM 3.7 mmol/L (3.5-5.1); TOTAL BILIRUBIN 0.32 mg/dL (0.20-1.00); TOTAL PROTEIN 7.4 g/dL (6.3-8.3)
[2018-05-23 05:52] LABS: BASO# 0.01 X1000 (0.0-0.2); HEMATOCRIT 24.2 % (42.0-52.0); HEMOGLOBIN 7.7 g/dL (14.0-18.0); IMM GRAN# 0.06 X1000 (0.0-0.04); IMM GRAN% 0.3 % (0.0-0.5); LYMPH# 0.57 X1000 (1.2-3.4); LYMPH% 2.5 % (20.5-51.1); MCH 27.1 PG (27-31); MCHC 31.8 g/dL (33-37); MCV 85.2 FL (81-99); MONO% 3.1 % (1.7-9.3); MPV 9.1 FL (7.4-10.4); NEUT# 21.58 X1000 (1.4-6.5); NEUT% 94.1 % (42.2-75.2); PLT 687 X1000 (130-400); RBC 2.84 XMIL (4.7-6.1); RDW 15.8 % (11.5-14.5); WBC 22.92 X1000 (4.8-10.8)
[2018-05-23] MEDS ORDERED: MORPHINE IV ONE ×2 (06:20→06:45)
--- NOTE | 2018-05-23 07:38 | Diag Imaging Result Doc PS360 ---
EXAM: CHEST-PORTABLE INDICATION: abnormal exam TECHNIQUE: One view COMPARISON: 05/22/2018 FINDINGS: Interstitial and airspace infiltrates bilaterally are unchanged. No new consolidation is identified. Cardiac silhouette is stable. IMPRESSION: Stable chest. Electronically signed by Nitesh Clement 05/23/2018 7:36 AM
[2018-05-23] MEDS: LOVENOX SUBQ SCH (09:08)
[2018-05-23] MEDS ORDERED: HALDOL IV PRN (09:08)
[2018-05-23] MEDS: LASIX IV SCH (09:08)
--- NOTE | 2018-05-23 09:21 | PULMONOLOGY PROGRESS NOTE ---
DATE: 05/23/2018 SUBJECTIVE: The patient is on BiPAP. He is arousable. Respiratory therapists report his oxygen saturation dropped following his blood gas this morning. OBJECTIVE: Vital Signs: The patient has been afebrile for the last 24 hours. Blood pressure 131/86, heart rate 93, respiratory rate 21, oxygen saturation 97%. HEENT: Pupils are equal and reactive. Oropharynx appears patent, but BiPAP in place. Neck: Supple. Chest: Bilateral crackles. Cardiac exam: S1 and S2. Abdomen: Soft and protuberant. Extremities: Trace edema. LABORATORY DATA: Arterial blood gas reveals pH 7.48, pCO2 38, PO2 58, on a non-rebreather. White blood count 22.9 thousand, hemoglobin 7.7, platelet count 687,000. Sodium 132, potassium 3.7, chloride 90, bicarbonate 26 BUN 48, creatinine 1.3. DIAGNOSTIC STUDIES: Chest x-ray reveals shallow inspiration, bilateral infiltrates, and some colonic distention likely present in the left upper quadrant. No acute change. IMPRESSION: A 67-year-old with acute hypoxemic respiratory failure, diffuse bilateral infiltrates, component of pulmonary fibrosis, with extensive tobacco history. The patient remains afebrile. His LÓPEZ is negative, but remaining connective tissue screen is pending. Infectious workup remains negative to date. RECOMMENDATIONS: 1. Continue high-dose steroids. 2. Continue oxygen and BiPAP. 3. Overall prognosis is guarded. cc: Jesus Prather MD
--- NOTE | 2018-05-23 09:32 | PROGRESS NOTE ---
DATE: 05/23/2018 SUBJECTIVE: Mr. Gar was sleeping, resting comfortably. OBJECTIVE: Vital Signs: Temperature 97.4 degrees, pulse 90, respirations 20, blood pressure 131/86. HEENT: Pupils are equal and round. Lungs: Clear in all lung person. Cardiovascular Examination: Regular rhythm and rate without murmur or S3. Neurologic: He did have some agitation yesterday. Apparently, the Ativan did not work and they gave some morphine which helped. We will try Haldol in the future. He does have wrist restraints on. Lab: Review of lab from yesterday, white count 22,920, hematocrit is 24, hemoglobin 7.7. Sodium 132, potassium 3.7, chloride 90, BUN 48, creatinine 1.3. Blood gases from yesterday, pH was 7.48, PCO2 of 38, PO2 is 58, O2 saturation 93%. Chest x-ray from today, interstitial and airspace infiltrates bilaterally, unchanged. No new consolidation appreciated. ASSESSMENT AND PLAN: 1. Acute hypoxemic respiratory failure, likely chronic obstructive pulmonary disease, pulmonary fibrosis, superimposed pneumonia, possible congestive heart failure. Echocardiogram, technically difficult study. There was moderate aortic stenosis, a mean gradient of 23 mmHg, no diastolic dysfunction, moderate pulmonary hypertension. Pulmonary arterial pressure was 53 mmHg. Mild degree of tricuspid regurgitation. 2. Chronic anemia. 3. Acute kidney injury. 4. Some delirium and confusion, and agitation. We will try some Haldol. 5. Continue present regimen. On Levaquin 500 mg daily, on methylprednisone 125 mg intravenous every 6 hours, azithromycin 500 mg daily. cc: Ron Brown MD
[2018-05-23] MEDS: LEVAQUIN 500 MG/D5W 500 MG/100 ML IVPB IV SCH (13:38)
[2018-05-23] MEDS: PROTONIX IV SCH (16:06)
[2018-05-23] MEDS: HALDOL IV PRN (16:06)
[2018-05-23] MEDS: MORPHINE IV PRN ×2 (18:15→20:47)
[2018-05-23] MEDS: ZITHROMAX 500 MG/NS 500 MG/250 ML IVPB IV SCH (19:59)
[2018-05-24] MEDS: SOLU-MEDROL IV SCH ×4 (01:08→23:23)
[2018-05-24] MEDS: HALDOL IV PRN ×4 (01:08→18:00)
[2018-05-24] MEDS: HUMALOG SUBQ SCH ×6 (01:08→21:59)
[2018-05-24] MEDS: XOPENEX NEB INH SCH ×6 (03:03→22:40)
[2018-05-24] MEDS: MAXIPIME 1 GM in NS 50 ML IV SCH ×2 (04:19→16:33)
[2018-05-24 07:10] LABS: ALB/GLOB RATIO 0.7; ALBUMIN 3.1 g/dL (3.5-5.0); CALCIUM 8.7 mg/dL (8.8-10.2); CREATININE 1.7 mg/dL (0.7-1.2); MAGNESIUM 3.4 mg/dL (1.5-2.7); POTASSIUM 3.8 mmol/L (3.5-5.1); TOTAL BILIRUBIN 0.29 mg/dL (0.20-1.00); TOTAL PROTEIN 7.6 g/dL (6.3-8.3)
[2018-05-24] MEDS ORDERED: D50W SYRINGE IV ONE (08:09)
[2018-05-24] MEDS: LASIX IV SCH (08:25)
[2018-05-24] MEDS: LOVENOX SUBQ SCH (08:25)
[2018-05-24] MEDS: MORPHINE IV PRN ×4 (08:38→22:17)
[2018-05-24] MEDS: NS NEB INH SCH ×3 (08:45→15:36)
[2018-05-24 09:07] LABS: ALLEN TEST YES; BE 8.1 mmoll (-3.0-3.0); BLOOD TYPE ARTERIAL; HCO3-(ACT) 31.2 mmoll (20.0-26.0); METHB 1.3 % (0.0-1.5); O2(CT) 8.3 mL/dL (15.0-23.0); PCO2(98.6) 50 mmHg (35-45); PO2(98.6) 63 mmHg (60-100); SAMPLE BLOOD; THB 6.5 g/dL (11.5-17.4); pH(98.6) 7.43 (7.35-7.45)
[2018-05-24 09:10] LABS: MODALITY BI PAP
--- NOTE | 2018-05-24 09:45 | PROGRESS NOTE ---
DATE: 05/24/2018 SUBJECTIVE: Mr. Gar is in restraints, on the BiPAP, remains afebrile. OBJECTIVE: Vital Signs: Temp 97.9 degrees, pulse 109, respirations 16, blood pressure 109/88. HEENT: Pupils are equal and round. Lungs: Clear in all lung person. Cardiovascular: Regular rhythm and rate without murmur or S3. Abdomen: Soft, nondistended. Skin: Warm and dry. Urine output was 2300 mL. MICROBIOLOGY: No growth from blood cultures on 05/20/2018. Sputum had gram-positive cocci and gram-positive rods and 1+ yeast, so kind of mixed results. Stool sent off on 05/23/2018 and was positive for occult blood. ASSESSMENT AND PLAN: 1. Acute hypoxemic respiratory failure, diffuse bilateral infiltrates, component of pulmonary fibrosis. He has extensive history of tobacco use. His LÓPEZ was negative. Connective tissue screening is still pending, and treating him for infection. Continue high-dose steroids. Continue his bilevel positive airway pressure, supplementary oxygen, bronchodilators. Chest x- ray from yesterday shows interstitial and airspace infiltrates bilaterally unchanged. No new consolidation identified. 2. Chronic anemia. 3. Acute kidney injury with underlying chronic kidney disease. His creatinine is up to 1.7, so that has been going up. Creatinine when he presented was 1.4. Continue present regimen. He is on Levaquin 500 mg a day and cefepime 1 gram every 12 hours, methylprednisone 125 mg intravenously every 6 hours, azithromycin 500 mg daily. cc: Ron Brown MD
--- NOTE | 2018-05-24 09:48 | Diag Imaging Result Doc PS360 ---
EXAM: CHEST-PORTABLE 05/24/2018 HISTORY: abnormal exam TECHNIQUE: AP portable at 0926 COMMENT: There is increasing alveolar opacification particularly in the right lower lobe compared to 05/23/2018. There is cardiomegaly. IMPRESSION: Worsening pulmonary edema. Electronically signed by Georges Huggins 05/24/2018 9:45 AM
--- NOTE | 2018-05-24 12:29 | PULMONOLOGY PROGRESS NOTE ---
DATE: 05/24/2018 SUBJECTIVE: The patient is awake and alert. He is on BiPAP. His saturations quickly drop and his BiPAP is discontinued. OBJECTIVE: Vital Signs: The patient has been afebrile for the last 24 hours. Blood pressure 135/78, heart rate 101, respiratory rate 17, oxygen saturation 99% on BiPAP. HEENT: Pupils are equal and reactive. Oropharynx evaluation is limited with BiPAP in place. Neck: Is supple. Chest: Reveals bilateral crackles. Cardiac: Exam increased rate. Regular rhythm. Abdomen: Obese and soft. Extremities: Without edema. LABORATORIES: Chest x-ray revealed increase bibasilar opacities with cardiomegaly. Sodium 142, potassium 3.8, chloride 97, bicarbonate 27, BUN is 67. Creatinine 1.7. Glucose 96. Arterial blood gas on BiPAP. PH 7.43, pCO2 of 50, PO2 of 63. IMPRESSION: A 67-year-old with acute hypoxemic respiratory failure, diffuse bilateral infiltrates/ARDS, component of pulmonary fibrosis, with extensive tobacco history. Patient's cyclic citrullinated peptide is markedly positive at greater than 250 with a strong positive greater than 60. I suspect that his disease is related to an underlying connective tissue process. RECOMMENDATIONS: 1. Continue current steroid dosing. 2. Continue current antibiotics. 3. Cycle oxygen and BiPAP as tolerated. 4. Overall prognosis is guarded. Time spent in critical care 30+ minutes. cc: Jesus Prather MD [facility]
[2018-05-24] MEDS: LEVAQUIN 500 MG/D5W 500 MG/100 ML IVPB IV SCH (13:31)
[2018-05-24] MEDS: PROTONIX IV SCH (16:33)
[2018-05-24] MEDS: ZITHROMAX 500 MG/NS 500 MG/250 ML IVPB IV SCH (23:23)
[2018-05-25] MEDS: HUMALOG SUBQ SCH ×4 (01:49→12:39)
[2018-05-25] MEDS: MORPHINE IV PRN ×8 (02:06→22:53)
[2018-05-25] MEDS: SOLU-MEDROL IV SCH ×3 (02:06→13:28)
[2018-05-25] MEDS: XOPENEX NEB INH SCH ×3 (03:46→11:50)
[2018-05-25 04:38] LABS: ALLEN TEST YES; BLOOD TYPE ARTERIAL; HCO3-(ACT) 26.9 mmoll (20.0-26.0); METHB 0.6 % (0.0-1.5); PCO2(98.6) 49 mmHg (35-45); PO2(98.6) 52 mmHg (60-100); SAMPLE BLOOD; SAO2 84.6 % (95.0-100.0); THB 12.9 g/dL (11.5-17.4); pH(98.6) 7.38 (7.35-7.45)
[2018-05-25 04:41] LABS: MODALITY BI PAP; O2HB 82.5 % (95.0-99.0)
[2018-05-25] MEDS: MAXIPIME 1 GM in NS 50 ML IV SCH (05:18)
[2018-05-25 05:27] LABS: ALB/GLOB RATIO 0.7; ALBUMIN 3.2 g/dL (3.5-5.0); CALCIUM 9.2 mg/dL (8.8-10.2); CREATININE 2.3 mg/dL (0.7-1.2); MAGNESIUM 3.6 mg/dL (1.5-2.7); POTASSIUM 4.1 mmol/L (3.5-5.1); TOTAL BILIRUBIN 0.43 mg/dL (0.20-1.00); TOTAL PROTEIN 7.8 g/dL (6.3-8.3)
[2018-05-25 06:05] LABS: HEMATOCRIT 25.7 % (42.0-52.0); MCH 27.4 PG (27-31); MCHC 31.1 g/dL (33-37); MPV 9.7 FL (7.4-10.4); RBC 2.92 XMIL (4.7-6.1); RDW 16.4 % (11.5-14.5); WBC 20.79 X1000 (4.8-10.8)
--- NOTE | 2018-05-25 07:50 | Diag Imaging Result Doc PS360 ---
CHEST-PORTABLE - 05/25/2018 INDICATION: respiratory failure COMPARISON: 05/24/2018 FINDINGS: Stable severely low lung volumes. Stable coarse interstitial opacities bilaterally suggesting pulmonary fibrosis. Heart size remains normal. IMPRESSION: No change from prior exams. Electronically signed by Lincoln Amaya 05/25/2018 7:48 AM
[2018-05-25] MEDS: LOVENOX SUBQ SCH (08:29)
[2018-05-25] MEDS: LASIX IV SCH (08:30)
[2018-05-25] MEDS: HALDOL IV PRN (09:50)
[2018-05-25] MEDS: NS NEB INH SCH (11:50)
[2018-05-25] MEDS: LEVAQUIN 500 MG/D5W 500 MG/100 ML IVPB IV SCH (13:28)
[2018-05-25] MEDS ORDERED: MORPHINE IV PRN (16:52)
--- NOTE | 2018-05-25 17:08 | PROGRESS NOTE ---
DATE: 05/25/2018 SUBJECTIVE: Mr. Gar is really struggling. He is more confused. His oxygenation CO2 has gone up. Discussed with family. They really do not want to back down on his comfort medications. I think they would like to change him to comfort only. OBJECTIVE: Vital Signs: Temperature 98.0 degrees, pulse 128, respirations 32, blood pressure 136/89. HEENT: Pupils are equal and round. No distended neck veins. Lungs: Scattered rhonchi. Decreased breath sounds both bases. Abdomen: Soft. Cardiovascular: Appears to be in atrial fibrillation. Irregular rhythm, irregular rate. No pedal edema. DIAGNOSTIC DATA: Lab reviewed from yesterday. White count still elevated. Chest x-ray from today, no change from prior exam. Stable severely low lung volumes, stable coarse interstitial opacities bilaterally, suggesting pulmonary fibrosis. ASSESSMENT AND PLAN: Acute hypoxemic respiratory failure, diffuse bilateral infiltrates. This could be acute respiratory distress syndrome, component of pulmonary fibrosis. Extensive tobacco history. Citrullinated peptide is markedly positive greater than 250 strong, positive greater than 60. Suspect disease relating to underlying connective tissue disease. Continue antibiotics. Continued continue his steroids and cyclic BiPAP. Family would like to make him comfort measures only, a no-code, level 1. Review of his orders. I do not see any change. He is requiring restraints and we are trying to give him some Haldol and morphine to keep him comfortable. cc: Ron Brown MD
[2018-05-25] MEDS: ATIVAN IV PRN ×3 (17:41→22:53)
[2018-05-26] MEDS: ATIVAN IV PRN ×3 (02:15→09:58)
[2018-05-26] MEDS: MORPHINE IV PRN ×3 (02:15→09:58)
--- NOTE | 2018-05-26 12:30 | PROGRESS NOTE ---
DATE: 05/26/2018 OBJECTIVE: Vital Signs: Temperature is 101.4, pulse 126, respirations 18. Eyes: Pupils are equal and round. Lungs: Clear in all lung person. Cardiovascular exam: Regular rhythm and rate without murmur or S3. Abdomen: Soft. Skin: Warm and dry. Blood sugar 182, 156 and 194. ASSESSMENT AND PLAN: Acute hypoxemic respiratory failure. Diffuse bilateral infiltrates. This could be acute respiratory distress syndrome, component of pulmonary fibrosis. Continues to kind of show decline and family would like just comfort measures. He has moved to a private room, and then we stopped his other treatment. He is a no-code, level 1. cc: Ron Brown MD
--- NOTE | 2018-05-26 16:49 | PROGRESS NOTE ---
DATE: 05/26/2018 ADDENDUM: Mr. Gar family was here and they had some concerns not sure that they want to quit everything, would like to start back his antibiotics and steroids and some IV fluids. They want to keep him no code level 1 but actually I think they want make a level 2 and the family like level 2 even though they want to keep him comfortable at the same time, they do not want to back down on any of his sedation and pain medicine so I will restart his methylprednisone, cefepime and will give him some IV fluids. They would also like some feeding, they just feel they want to feel like they have done everything they can so I will start those back. Dr. Prather has been following. He has acute hypoxemic respiratory failure, has diffuse bilateral infiltrates and acute respiratory distress and component pulmonary fibrosis, extensive tobacco history, patient's cyclic citrullinated peptide is markedly positive greater than 215 and suspect he has underlying connective tissue disease. I will comply with the family's wishes so I do not think he will be on hospice but he is on 3rd floor in private room. He has remained unresponsive. His lungs with scattered rales, temperature was 100.3 degrees, pulse 118, respirations 17, blood pressure 101/54. Pupils are equal. Lungs are clear except for scattered rhonchi in the lower bases. Abdomen is soft. No pedal edema. Blood sugars have been 194, 182, 156, will check some more blood work in the morning, check another chest x-ray. cc: Ron Brown MD
[2018-05-26] MEDS: CLINIMIX E 4.25%-5% SOLUTION 1,000 ML IV SCH (16:51)
[2018-05-26] MEDS: MAXIPIME 2 GM in NS 100 ML IV SCH (16:52)
[2018-05-26] MEDS: SOLU-MEDROL IV SCH ×2 (16:52→22:07)
[2018-05-26] MEDS: NS 1,000 ML IV SCH (16:54)
[2018-05-27] MEDS: MAXIPIME 2 GM in NS 100 ML IV SCH ×2 (05:33→16:25)
[2018-05-27] MEDS: CLINIMIX E 4.25%-5% SOLUTION 1,000 ML IV SCH ×2 (05:33→16:29)
[2018-05-27] MEDS: SOLU-MEDROL IV SCH ×4 (05:33→23:53)
[2018-05-27 07:01] LABS: BASO# 0.02 X1000 (0.0-0.2); BASO% 0.1 % (0.0-0.8); HEMATOCRIT 25.7 % (42.0-52.0); HEMOGLOBIN 7.3 g/dL (14.0-18.0); IMM GRAN# 0.22 X1000 (0.0-0.04); IMM GRAN% 1.1 % (0.0-0.5); LYMPH# 0.61 X1000 (1.2-3.4); LYMPH% 2.9 % (20.5-51.1); MCH 26.4 PG (27-31); MCHC 28.4 g/dL (33-37); MCV 93.1 FL (81-99); MONO# 0.59 X1000 (0.11-0.59); MONO% 2.8 % (1.7-9.3); MPV 10.2 FL (7.4-10.4); NEUT# 19.34 X1000 (1.4-6.5); NEUT% 93.1 % (42.2-75.2); PLT 351 X1000 (130-400); RBC 2.76 XMIL (4.7-6.1); RDW 18.1 % (11.5-14.5); WBC 20.78 X1000 (4.8-10.8)
[2018-05-27 09:45] LABS: AGAP 20; BUN 209 mg/dL (8-22); CALCIUM 8.2 mg/dL (8.8-10.2); CHLORIDE 106 mmol/L (98-107); COSMO 394; CREATININE 6.6 mg/dL (0.7-1.2); SODIUM 150 mmol/L (136-145); TCO2 24 mmol/L (25-35)
[2018-05-27 09:49] LABS: GLUCOSE 567 mg/dL (70-104); POTASSIUM 8.4 mmol/L (3.5-5.1)
[2018-05-27 09:53] LABS: ANISOCYTOSIS 1+; BANDS 6 % (0-1); HYPOCHROM 1+; LYMPHS 2 % (21-51); POIKILOCYTOSIS 1+; SEGS 88 % (42-75); TARGET CELLS OCCASIONAL
--- NOTE | 2018-05-27 10:10 | Diag Imaging Result Doc PS360 ---
EXAM: CHEST-PORTABLE INDICATION: pneumonia TECHNIQUE: One view COMPARISON: 05/25/2018 FINDINGS: Extensive coarse interstitial thickening throughout both lungs consistent with known pulmonary fibrosis is essentially stable. No new consolidation is identified cardiac silhouette is stable. IMPRESSION: Stable chest. Electronically signed by Nitesh Clement 05/27/2018 10:08 AM
--- NOTE | 2018-05-27 14:52 | PROGRESS NOTE ---
DATE: 05/27/2018 Mr. Gar is not responded. He still on BiPAP and respirations at time look agonal. He is not had any fever through the night. Temperature 99.8 degrees, pulse 110, respirations 18, blood pressure 105/52. Pupils are equal and round.Lungs: Clear in all lung person. Cardiovascular: Regular rhythm, rate without murmur or S3. Abdomen: Soft. Skin: Warm and dry. Urine output 1300 mL. LAB: Review lab from this morning, sodium 150, potassium 8.4, chloride 106, BUN 209, creatinine 6.6, blood sugar 576, calcium 8.2. Repeat chest x-ray this morning extensive coarse interstitial thickening throughout the lungs consistent with known pulmonary fibrosis essentially stable, no new consolidation. ASSESSMENT AND PLAN: Explained to family that renal function is deteriorating and his respiratory function continues to decline. They would like comfort measures but there is at least some the family that are pretty insistent about keeping him on his fluids and also keeping him on some antibiotic and steroids so I will continue those in deference to their wishes but they do not want him intubated, they do not want chest compressions and they understand that the prognosis is very grim, do not expect him to last very long. They also were adamant about some feeding so he is getting Clinimix. He is on methylprednisone and he is on cefepime. cc: Ron Brown MD
[2018-05-27] MEDS: NS 1,000 ML IV SCH (16:25)
[2018-05-27 20:10] VITALS: BP 43/14
--- NOTE | 2018-06-29 08:33 | DISCHARGE SUMMARY ---
ADMISSION DATE: 05/20/2018 DISCHARGE DATE: 05/27/2018 HISTORY: The patient was pronounced at 20:25 on 05/27/2018. The patient was admitted on 05/20/2018. His physician is JULISSA Tapia. A 67-year-old male with history of COPD, appeared to have pulmonary fibrosis, hypertension, hyperlipidemia, and depression presented with 4- day history of increasing dyspnea and right lower quadrant pain. He was having shortness of breath 4 days ago, progressively associated with dry cough. No fever. Denied any chest pain. He had been followed by his PCP for anemia, and had an abdominal CT in March that showed pulmonary fibrosis, honeycombing in the lung bases, but nothing acute, and still we were working on his anemia. PAST MEDICAL HISTORY: 1. COPD. 2. Hypertension. 3. Hyperlipidemia. 4. Obesity. 5. Anemia. 6. Chronic pain. 7. [id number] history of smoking; quit smoking apparently 10 days before this admission. HOSPITAL COURSE: He was admitted with acute hypoxemic respiratory failure likely COPD, pulmonary fibrosis, superimposed pneumonia, possibly congestive heart failure, and was put on antibiotics. He was put on Levaquin, and I think a double antibiotic when he came in to cover for possibility of Pseudomonas. [place] he probably had community-acquired pneumonia with underlying fibrosis. Chest x-ray was stable, and did not show any new infiltrates. Echocardiogram was done, and technically difficult. Moderate aortic stenosis with mean gradient was 23 mmHg. No diastolic dysfunction, moderate pulmonary hypertension, estimated about 53 mmHg, and moderate degree of tricuspid regurgitation. There was some pericardial effusion. Pulmonary was consulted and Cardiology was consulted. Pulmonary felt he had acute hypoxemic respiratory failure, pulmonary fibrosis, and extensive tobacco use. The CT revealed diffuse bilateral ground-glass changes. [place] it was an exacerbation of idiopathic pulmonary fibrosis with underlying COPD, and could be related to an illness such as desquamative interstitial pneumonitis. Did not have any significant infectious symptoms, and felt interstitial pneumonitis was unlikely, but he was treated for atypical pneumonia and Legionella pneumonia; felt was unlikely as well. We kept him on bronchodilators and supplementary O2. He developed acute kidney injury, and creatinine went up to 1.7. This seemed to improve. He was on Levaquin, cefepime and methylprednisone. He felt his function was continued to deteriorate, and family wanted to pursue just comfort measures. They wanted to keep him on the antibiotic and steroids. They did not want him intubated. He continued to show decline. On 05/27/2018, he at 20:25. cc: Ron Brown MD
== END 2018-05-27 20:25 | disposition expired | DRG 193 ==
LOC: ED 14:04 → EDIPHOLD 16:50 → SUATTDRO 16:50 → ICU 05-21 10:39 → 3N 05-25 18:16
PROVIDERS: ATTEND Emergency Medicine
CPT/HCPCS: 51702; 71010; 71045; 71260; 74177; 80048; 80053; 81001; 82272; 82550; 82553; 82570; 82607; 82728; 82746; 82805; 82948; 83036; 83540; 83550; 83605; 83735; 83880; 84100; 84145; 84156; 84300; 84439; 84443; 84484; 85025; 85027; 85610; 85730; 86038; 86039; 86200; 86713; 87040; 87070; 87205; 87275; 87276; 87449; 87804; 87899; 93005; 93306; 94640; 94660; 94760; 94761; 94762; 96361; 96365; 96366; 96367; 96368; 96375; 99285; A9270; C9113; J0456; J0692; J1630; J1650; J1815; J1940; J1956; J2020; J2060; J2270; J2543; J2930; J7030; J7040; Q9967; S0164; XXXXX